=== PATIENT | female | born 2000 | race Caucasian/White ===

== ENCOUNTER 2019-08-10 17:07 | Emergency (ER) | payer MEDICAID ==
[2019-08-10 17:43] VITALS: BP 130/92; PULSE 88; O2SAT 97
--- NOTE | 2019-08-10 18:20 | ERPHSYRPT ---
- History of Present Illness Source: patient Exam Limitations: no limitations Patient Subjective Stated Complaint: pt here wanting to be placed in rehab for meth, pt used saturday, she smoked or snorts meth, no other drugs, has not been through rehab before Triage Nursing Assessment: pt alert, walked in, resp easy, skin w/d/p.moves all ext well, Physician History: The patient is a 18-year-old female who presents with a chief complaint seeking rehabilitation were substance abuse counseling resources. She states that she has used methamphetamines a total of 4 times with her last use being 2 days ago. Her family members were aware of her methamphetamine use and they contacted the [facility] who then told her to come to this ED for further evaluation and management and to seek rehabilitation placement. she denies suicidal ideations and homicidal ideations. She states she has a history of anxiety but does not take medication for this nor does he follow with a therapist her outpatient counselor. She has no specific complaints at this time other than what resources. Allergies/Adverse Reactions: Penicillins Allergy (Intermediate, Verified 08/10/19 17:44) Rash Home Medications: No Reportable Medications [No Reported Medications] 08/10/19 [History] Hx Influenza Vaccination/Date Given: No Hx Pneumococcal Vaccination/Date Given: No Immunizations Up to Date: Yes - Review of Systems Constitutional: No Symptoms Eyes: No Symptoms Ears, Nose, & Throat: No Symptoms Respiratory: No Symptoms Abdominal/Gastrointestinal: No Symptoms Musculoskeletal: No Symptoms Skin: No Symptoms Neurological: No Symptoms Psychological: No Symptoms, Other (No SI or report of suicide attemp), No Suicidal Ideations, No Homicidal Ideations, No Hallucinations All Other Systems: Reviewed and Negative - Past Medical History Pertinent Past Medical History: No Neurological History: No Pertinent History ENT History: No Pertinent History Cardiac History: No Pertinent History Respiratory History: No Pertinent History Endocrine Medical History: No Pertinent History Musculoskeletal History: No Pertinent History GI Medical History: No Pertinent History History: No Pertinent History Psycho-Social History: No Pertinent History - Past Surgical History Past Surgical History: No Neuro Surgical History: No Pertinent History Cardiac: No Pertinent History Respiratory: No Pertinent History Gastrointestinal: No Pertinent History Genitourinary: No Pertinent History Musculoskeletal: No Pertinent History Female Surgical History: No Pertinent History Other Surgical History: TONSILS, surgery on toe - Social History Smoking Status: Current every day smoker Exposure to second hand smoke: Yes Drug Use: methamphetamines Patient Lives Alone: No (grandparents) - Female History Hx Last Menstrual Period: 3 days ago Hx Now: No - Nursing Vital Signs Nursing Vital Signs: Initial Vital Signs Temperature 98.1 F 08/10/19 17:38 Pulse Rate 88 08/10/19 17:38 Respiratory Rate 16 08/10/19 17:38 Blood Pressure 130/92 08/10/19 17:38 O2 Sat by Pulse Oximetry 97 08/10/19 17:38 Pain Scale Pain Intensity 0 - Physical Exam General Appearance: no apparent distress, alert Eye Exam: PERRL/EOMI, other (No occular clonus) Ears, Nose, Throat Exam: other (Normal phonation), No TM abnormal (L), No pharyngeal erythema, No tonsillar exudate Neck Exam: No full range of motion, No mass, No JVD Respiratory Exam: normal breath sounds, airway intact, No lungs clear, No respiratory distress, No diminished breath sounds Cardiovascular Exam: regular rate/rhythm, normal peripheral pulses, murmur, capillary refill <2 sec, No edema Gastrointestinal/Abdomen Exam: soft, No tenderness, No distention, No mass Pelvic Exam: not done Rectal Exam: deferred Back Exam: normal inspection, No vertebral tenderness, No rash Extremity Exam: normal inspection Neurologic Exam: alert, oriented x 3, cooperative Skin Exam: normal color, warm, dry, other (No evidence of track neal), No rash , No petechiae, No jaundice SpO2: 97 O2 Delivery: Room Air - Course Nursing assessment & vital signs reviewed: Yes - Progress Progress: unchanged Counseled pt/family regarding: need for follow-up (Counseling and drug abuse counseling resources provided by the patient nurse) - Departure Departure Disposition: Home Clinical Impression: Methamphetamine abuse Condition: Stable Critical Care Time: No Referrals: ROSHAN BAILON FNP [Primary Care Provider] - Instructions: Drug Abuse and Drug Addiction (DC), Methamphetamine Additional Instructions: please followup with the substance abuse counseling resources that were provided to you by the nursing staff. Also please refrain from using methamphetamines in the future. Plan of Treatment: Nontoxic in appearance. Asymptomatic currently. I think her expectations were a bit malaligned and we do not have social work available currently. She was ok with no going to rehab at this moment and informed me she really doesn't want to go and she is in the ED maily because of her family talking her into coming to the ED to seek counseling services. She was ok with following-up as an outpatient with the counseling resources that were provided.
== END 2019-08-10 18:57 | disposition home or self-care (01) ==
LOC: ED 17:07
DX: F15.10 Other stimulant abuse, uncomplicated (principal)
CPT/HCPCS: 99284

== ENCOUNTER 2020-02-29 19:00 | Emergency (ER) | payer MEDICAID ==
[2020-02-29 19:37] LABS: Absolute Neutrophil Ct (ANC) 8.04 (1.4-6.9); BASOPHIL % 0.2 % (0.0-0.4); Basophil (Absolute #) 0.02 (0-0.4); Eosinophil % 1.2 % (0.00-5.0); Eosinophil (Absolute #) 0.14 (0-0.5); Hematocrit 39.5 % (35-47); Hemoglobin 13.3 gm/dl (12.0-16.0); Lymphocyte (Absolute #) 2.26 (1.0-4.6); Lymphocytes % 19.6 % (24.0-44.0); Mean Cell Volume 92.9 fl (78-100); Mean Corpuscular Hemoglobin 31.3 pg (26-32); Mean Corpuscular Hgb Concent. 33.7 g/dl (32-36); Mean Platelet Volume 10.5 fl (7.5-11.0); Monocyte (Absolute #) 1.09 (0.0-1.3); Monocytes % 9.4 % (0.0-12.0); Neutrophil % 69.6 % (36.0-66.0); Platelet Count 240 K/mm3 (150-450); Red Blood Count 4.25 M/mm3 (4.1-5.4); Red Cell Distribution Width 13.2 % (11.5-14.0); White Blood Count 11.6 K/mm3 (4.0-10.5)
[2020-02-29 19:38] LABS: Appearance SLIGHTLY CLOUDY (CLEAR); Bilirubin NEGATIVE (NEGATIVE); Blood NEGATIVE Ery/ul (0-5); Glucose NEGATIVE (NEGATIVE); Ketones NEGATIVE (NEGATIVE); Leukocyte Esterase NEGATIVE (NEGATIVE); Mucus SLIGHT /HPF (NEGATIVE); Nitrite NEGATIVE (NEGATIVE); Protein,Urine Dip NEGATIVE (Negative); Specific Gravity 1.026 (1.005-1.025); Urobilinogen NEGATIVE mg/dL (0-1)
--- NOTE | 2020-02-29 20:46 | ERPHSYRPT ---
- History of Present Illness Source: patient Exam Limitations: no limitations Patient Subjective Stated Complaint: pt states that she believes she is 9-10 weeks , pt states that she has began to spot yesterday afternoon, pt states that she has rt lower stomach pain, pt states that she was worried and wanted to be checked out, pt states that she did have intercourse 2 days ago Triage Nursing Assessment: pt ambulated into the er, pt is axo x3, c/o bleeding during pregnany, c/o pain to RLQ, states 5/10 pain, clear lung sounds in all lobes, clear heart tones, active bowel sounds in all quads, vitals wnl Physician History: 19 yo wf who states is 9wks complains of vag bleeding yesterday which has subsided now complains of RLQ cramping. She has mild vag dc wo fever/N/V/D/dysuria/hematuria. [id number]. No confirmation of IUP. Timing/Duration: day(s) (2days) Activites at Onset: none Onset Location: RLQ Pain Radiation: none Severity of Pain-Max: moderate Severity of Pain-Current: moderate Prior abdominal problems: none Sexual intercourse history: unprotected intercourse Modifying Factors: Improves With: nothing Associated Symptoms: abdominal pain, , vaginal discharge, No fever, No chills, No diaphoresis, No nausea, No vomiting, No dysuria, No nocturia, No polyuria, No urinary frequency, No loss of bladder control, No lower back pain, No lumps, No syncope Allergies/Adverse Reactions: Penicillins Allergy (Intermediate, Verified 02/29/20 19:38) Rash Home Medications: Pnv No.95/Ferrous Fum/Folic AC [ Formula Tablet] 1 tab PO DAILY 02/29/20 [History] Hx Tetanus, Diphtheria Vaccination/Date Given: No Hx Influenza Vaccination/Date Given: No Hx Pneumococcal Vaccination/Date Given: No Travel Risk - International Travel Have you traveled outside of the country in past 3 weeks: No - Coronavirus Screening Are you exhibiting any of the following symptoms?: No Close contact with a COVID-19 positive Pt in past 14-21 Days: No - Review of Systems Constitutional: No Symptoms Eyes: No Symptoms Ears, Nose, & Throat: No Symptoms Respiratory: No Symptoms Cardiac: No Symptoms Abdominal/Gastrointestinal: Abdominal Pain (R supra-pubic) Genitourinary Symptoms: , Vaginal Bleeding, Vaginal Discharge Musculoskeletal: No Symptoms Skin: No Symptoms Neurological: No Symptoms Psychological: No Symptoms Endocrine: No Symptoms Hematologic/Lymphatic: No Symptoms Immunological/Allergic: No Symptoms - Past Medical History Pertinent Past Medical History: No Neurological History: No Pertinent History ENT History: No Pertinent History Cardiac History: No Pertinent History Respiratory History: No Pertinent History Endocrine Medical History: No Pertinent History Musculoskeletal History: No Pertinent History GI Medical History: No Pertinent History History: No Pertinent History Psycho-Social History: No Pertinent History Female Reproductive Disorders: No Pertinent History - Past Surgical History Past Surgical History: Yes Neuro Surgical History: No Pertinent History Cardiac: No Pertinent History Respiratory: No Pertinent History Gastrointestinal: No Pertinent History Genitourinary: No Pertinent History Musculoskeletal: No Pertinent History Female Surgical History: No Pertinent History Other Surgical History: TONSILS, surgery on toe - Social History Smoking Status: Current every day smoker Exposure to second hand smoke: No Drug Use: none Patient Lives Alone: No (grandparents) Significant Family History: no pertinent family hx - Female History Hx Now: Yes (9-10 weeks) - Nursing Vital Signs Nursing Vital Signs: Initial Vital Signs Temperature 98.9 F 02/29/20 19:13 Pulse Rate 101 H 02/29/20 19:13 Respiratory Rate 16 02/29/20 19:13 Blood Pressure 140/80 02/29/20 19:13 O2 Sat by Pulse Oximetry 98 02/29/20 19:13 Pain Scale Pain Intensity 0 - Physical Exam General Appearance: no apparent distress Eye Exam: PERRL/EOMI, eyes nml inspection Ears, Nose, Throat Exam: normal ENT inspection, TMs normal, pharynx normal Neck Exam: normal inspection, non-tender, No meningismus, No Brudzinski, No Kernig's Respiratory Exam: normal breath sounds, lungs clear Cardiovascular Exam: regular rate/rhythm, normal heart sounds Gastrointestinal/Abdomen Exam: soft, normal bowel sounds, tenderness (RLQ/R adnexal) Pelvic Exam: normal external exam, No vaginal bleeding, No vaginal discharge Back Exam: normal inspection, normal range of motion, No CVA tenderness Extremity Exam: normal inspection, normal range of motion Neurologic Exam: alert, oriented x 3, cooperative, trans router II-XII nml as tested, normal mood/affect, nml station & gait, sensation nml, No motor deficits, No sensory deficit SpO2: 99 - Radiology Ultrasound Exam Pelvis Ultrasound: Other (Discussed w tech/9wk IUP/No adnexal mass/subchorionic hem orrhage x2) Ordered Tests: Active Orders 24 hr Category Date Time Status IV Insertion STAT Care 02/29/20 19:19 Completed OB <14 WKS 1ST GESTATION [US] Stat Exams 02/29/20 20:51 Completed CBC W DIFF Stat Lab 02/29/20 19:18 Completed HCG, Quantitative (Inhouse) Stat Lab 02/29/20 19:45 Completed HCG,QUALITATIVE URINE Stat Lab 02/29/20 19:18 Completed UA W/RFX UR CULTURE Stat Lab 02/29/20 19:18 Completed Lab/Rad Data: Laboratory Result Diagrams 02/29/20 19:18 Laboratory Results 02/29/20 02/29/20 02/29/20 Range/Units Unknown Unknown 19:45 WBC (4.0-10.5) K/mm3 RBC (4.1-5.4) M/mm3 Hgb (12.0-16.0) gm/dl Hct (35-47) % MCV (78-100) fl MCH (26-32) pg MCHC (32-36) g/dl RDW (11.5-14.0) % Plt Count (150-450) K/mm3 MPV (7.5-11.0) fl Gran % (36.0-66.0) % Eos # (Auto) (0-0.5) Absolute Lymphs (auto) (1.0-4.6) Absolute Monos (auto) (0.0-1.3) Lymphocytes % (24.0-44.0) % Monocytes % (0.0-12.0) % Eosinophils % (0.00-5.0) % Basophils % (0.0-0.4) % Absolute Granulocytes (1.4-6.9) Basophils # (0-0.4) Beta HCG, Quant 36837 mIU/ml Urine Color (YELLOW) Urine Appearance (CLEAR) Urine pH (5-6) Ur Specific [place] (1.005-1.025) Urine Protein (Negative) Urine Ketones (NEGATIVE) Urine Blood (0-5) Abisai/ul Urine Nitrite (NEGATIVE) Urine Bilirubin (NEGATIVE) Urine Urobilinogen (0-1) mg/dL Ur Leukocyte Esterase (NEGATIVE) Urine WBC (Auto) (0-5) /HPF Urine RBC (Auto) (0-2) /HPF U Epithel Cells (Auto) (FEW) /HPF Urine Bacteria (Auto) (NEGATIVE) /HPF Urine Mucus (Auto) (NEGATIVE) /HPF Urine Culture Reflexed (NO) Urine Glucose (NEGATIVE) mg/dL Urine HCG, Qual (Negative) WBC (Wet Prep) Moderate RBC (Wet Prep) None Seen Epi Cells (Wet Prep) Moderate Bacteria (Wet Prep) Many Clue Cells (Wet Prep) Rare Trichomonas (Wet Prep) None Seen Budding Yeast (Wet Prp) None Seen Chlamydia DNA Probe NOT DETECTED (NEGATIVE) N.gonorrhoeae DNA Probe NOT DETECTED (NEGATIVE) 02/29/20 02/29/20 02/29/20 Range/Units 19:18 19:18 19:18 WBC 11.6 H (4.0-10.5) K/mm3 RBC 4.25 (4.1-5.4) M/mm3 Hgb 13.3 (12.0-16.0) gm/dl Hct 39.5 (35-47) % MCV 92.9 (78-100) fl MCH 31.3 (26-32) pg MCHC 33.7 (32-36) g/dl RDW 13.2 (11.5-14.0) % Plt Count 240 (150-450) K/mm3 MPV 10.5 (7.5-11.0) fl Gran % 69.6 H (36.0-66.0) % Eos # (Auto) 0.14 (0-0.5) Absolute Lymphs (auto) 2.26 (1.0-4.6) Absolute Monos (auto) 1.09 (0.0-1.3) Lymphocytes % 19.6 L (24.0-44.0) % Monocytes % 9.4 (0.0-12.0) % Eosinophils % 1.2 (0.00-5.0) % Basophils % 0.2 (0.0-0.4) % Absolute Granulocytes 8.04 H (1.4-6.9) Basophils # 0.02 (0-0.4) Beta HCG, Quant mIU/ml Urine Color MIREYA (YELLOW) Urine Appearance SLIGHTLY CLOUDY (CLEAR) Urine pH 6.0 (5-6) Ur Specific [place] 1.026 (1.005-1.025) Urine Protein NEGATIVE (Negative) Urine Ketones NEGATIVE (NEGATIVE) Urine Blood NEGATIVE (0-5) Abisai/ul Urine Nitrite NEGATIVE (NEGATIVE) Urine Bilirubin NEGATIVE (NEGATIVE) Urine Urobilinogen NEGATIVE (0-1) mg/dL Ur Leukocyte Esterase NEGATIVE (NEGATIVE) Urine WBC (Auto) NONE (0-5) /HPF Urine RBC (Auto) NONE (0-2) /HPF U Epithel Cells (Auto) NONE (FEW) /HPF Urine Bacteria (Auto) NONE (NEGATIVE) /HPF Urine Mucus (Auto) SLIGHT (NEGATIVE) /HPF Urine Culture Reflexed NO (NO) Urine Glucose NEGATIVE (NEGATIVE) mg/dL Urine HCG, Qual POSITIVE (Negative) WBC (Wet Prep) RBC (Wet Prep) Epi Cells (Wet Prep) Bacteria (Wet Prep) Clue Cells (Wet Prep) Trichomonas (Wet Prep) Budding Yeast (Wet Prp) Chlamydia DNA Probe (NEGATIVE) N.gonorrhoeae DNA Probe (NEGATIVE) - Progress Progress: unchanged Progress Note: 02/29/20 21:09 GC/Chlamydia/TIEN/trich/BV P 03/01/20 01:25 GC/Chlamydia/no yeast/no trich/Pt to be called in AM Antibiotics given: No Counseled pt/family regarding: lab results, need for follow-up, rad results - Departure Departure Disposition: Home Clinical Impression: Intrauterine , Subchorionic hemorrhage Condition: Stable Critical Care Time: No Referrals: ROSHAN BAILON, FORGE TENDER [Primary Care Provider] - Instructions: Threatened Miscarriage (DC), Symptoms Additional Instructions: Follow up with [facility] jt Return to ER for increasing pain/bleeding Results will be called
--- NOTE | 2020-02-29 21:24 | XRAY ---
Exam: OB ultrasound less than 14 weeks from 02/29/2020. Comparison: None from this . Indication: Pelvic pain and vaginal spotting. Findings: Transabdominal longitudinal and transverse images were obtained. An unremarkable positioned and shaped gestational sac is seen within the upper uterine segment of the maternal uterus. The gestational sac contains a single live intrauterine pole with a crown-rump length of 2.25 cm consistent with a gestational age of 9 weeks, 0 days plus or -6 days yielding an estimated due date of 10/03/2020. This is in excellent accordance with the gestational age by dates (LMP) which is also 9 weeks, 0 days. heart rate measured 165 bpm. There appear to be 2 sites of subtle subchorionic hemorrhages at both the superior right lateral and inferior margins of the gestational sac. The superior one measures 2.46 cm x 1.45 cm x 1.38 cm. The more inferior one measures 2.57 cm x 1.42 cm x 1.57 cm. No fluid is seen within the cervical canal or vagina. The maternal right ovary measures 3.85 cm x 1.7 cm x 1.6 cm and is remarkable for a few small follicles. Normal color blood flow and Doppler signal is seen within the maternal right ovary. The maternal left ovary measures 4.3 cm x 1.6 cm x 2.9 cm and reveals normal color blood flow and Doppler signal within it. There appears to be a corpus luteal cyst within the maternal left ovary measuring 2.68 cm x 1.31 cm x 1.60 cm. Normal color blood flow and Doppler signal is seen within the maternal left ovary. Impression: 1. 9 week, 0 day single live intrauterine fetus with an estimated due date 10/03/2020. The heart rate is 165 bpm. 2. There appear to be 2 small subchorionic hemorrhages at the superior right lateral and inferior margins of the gestational sac. No abnormal fluid is seen within the cervical canal or vaginal stripe. 3. The maternal ovaries appeared remarkable only for a corpus luteal cyst within the left ovary.
[2020-02-29 21:25] VITALS: BP 110/56; PULSE 74
[2020-02-29 22:06] LABS: Bacteria Many; Clue Cells Rare; Red Blood Cells None Seen; Trichomonas None Seen; White Blood Cells Moderate; Yeast None Seen
[2020-02-29 23:42] LABS: CHLAMYDIA DNA NOT DETECTED (NEGATIVE); GC DNA Probe NOT DETECTED (NEGATIVE)
[2020-03-01 01:26] VITALS: O2SAT 99
== END 2020-02-29 21:25 | disposition home or self-care (01) ==
LOC: ED 19:00
DX: O20.9 Hemorrhage in early pregnancy, unspecified (principal); Z3A.10 10 weeks gestation of pregnancy; R10.9 Unspecified abdominal pain; R11.2 Nausea with vomiting, unspecified; Z79.899 Other long term (current) drug therapy; E11.9 Type 2 diabetes mellitus without complications; E05.90 Thyrotoxicosis, unspecified without thyrotoxic crisis or storm; J44.9 Chronic obstructive pulmonary disease, unspecified; I10 Essential (primary) hypertension; F41.9 Anxiety disorder, unspecified; F32.9 Major depressive disorder, single episode, unspecified
CPT/HCPCS: 36000; 36415; 76801; 81001; 84702; 84703; 85025; 87210; 87491; 87591; 99284

== ENCOUNTER 2022-08-07 18:25 | Observation (INO) | payer OTHER ==
[2022-08-07 19:18] VITALS: O2SAT 96
[2022-08-07 19:50] LABS: Appearance Clear (Clear); Bacteria None Seen /HPF (None Seen); Bilirubin Negative (Negative); Blood Negative (Negative); Epithelial Cells Rare /HPF (None Seen); Glucose, Urine Negative (Negative); Hyaline Casts NONE SEEN /LPF (0-2); Ketones Trace (Negative); Leukocyte Esterase Negative (Negative); Nitrite Negative (Negative); Protein,Urine Dip Trace (Negative); RBC 0-2 /HPF (0-5); Urobilinogen 0.2 mg/dL (0.2)
[2022-08-07 19:52] LABS: ADD URINE CULTURE? NO (NO)
[2022-08-07 19:53] VITALS: BP 117/71; PULSE 106
[2022-08-07 20:07] LABS: Amphetamine,Urine NEGATIVE (NEGATIVE); Barbiturate,Urine NEGATIVE (NEGATIVE); Benzodiazepine,Urine NEGATIVE (NEGATIVE); Cocaine,Urine NEGATIVE (NEGATIVE); Methadone,Urine NEGATIVE (NEGATIVE); Opiate,Urine NEGATIVE (NEGATIVE); PCP,Urine NEGATIVE (NEGATIVE); THC,Urine NEGATIVE (NEGATIVE)
== END 2022-08-07 20:20 | disposition home or self-care (01) ==
LOC: OB 18:25
PROVIDERS: ADMIT Family Medicine; ATTEND Family Medicine
DX: Z34.83 Encounter for supervision of other normal pregnancy, third trimester (principal); Z3A.37 37 weeks gestation of pregnancy
CPT/HCPCS: 80307; 81001; G0378

== ENCOUNTER 2022-08-13 16:41 | Observation (INO) | payer OTHER ==
[2022-08-13 17:33] VITALS: PULSE 96; O2SAT 95
[2022-08-13 17:55] LABS: Absolute Neutrophil Ct (ANC) 7.97 x10^3/uL (1.4-6.9); BASOPHIL % 0.4 % (0.0-0.4); Basophil (Absolute #) 0.04 x10^3/uL (0-0.4); Eosinophil % 0.5 % (0.00-5.0); Eosinophil (Absolute #) 0.06 x10^3/uL (0-0.5); Hematocrit 34.7 % (35-47); Hemoglobin 11.3 g/dL (12.0-16.0); IMMATURE GRAN # 0.15 x10^3u/L (0.00-0.03); IMMATURE GRAN % 1.3 % (0.00-0.4); Lymphocyte (Absolute #) 2.03 x10^3/uL (1.0-4.6); Lymphocytes % 18.2 % (24.0-44.0); Mean Corpuscular Hemoglobin 30.3 pg (26-32); Mean Corpuscular Hgb Concent. 32.6 g/dL (32-36); Mean Platelet Volume 9.9 fL (7.5-11.0); Monocyte (Absolute #) 0.92 x10^3/uL (0.0-1.3); Monocytes % 8.2 % (0.0-12.0); Neutrophil % 71.4 % (36.0-66.0); Platelet Count 212 x10^3/uL (150-450); Red Blood Count 3.73 x10^6/uL (4.1-5.4); Red Cell Distribution Width 13.6 % (11.5-14.0); White Blood Count 11.2 x10^3/uL (4.0-10.5)
[2022-08-13 17:58] LABS: Amphetamine,Urine NEGATIVE (NEGATIVE); Barbiturate,Urine NEGATIVE (NEGATIVE); Benzodiazepine,Urine NEGATIVE (NEGATIVE); Cocaine,Urine NEGATIVE (NEGATIVE); Methadone,Urine NEGATIVE (NEGATIVE); Opiate,Urine NEGATIVE (NEGATIVE); PCP,Urine NEGATIVE (NEGATIVE); THC,Urine NEGATIVE (NEGATIVE)
[2022-08-13 18:01] LABS: Appearance Clear (Clear); Bacteria Few /HPF (None Seen); Bilirubin Negative (Negative); Blood Negative (Negative); Epithelial Cells Few /HPF (None Seen); Glucose, Urine Negative (Negative); Ketones Trace (Negative); Leukocyte Esterase Negative (Negative); Nitrite Negative (Negative); Protein,Urine Dip 30 (Negative); RBC 0-2 /HPF (0-5); Specific Gravity >=1.030 (1.005-1.030); Urobilinogen 0.2 mg/dL (0.2)
[2022-08-13 18:02] LABS: ADD URINE CULTURE? NO (NO); Hyaline Casts None Seen /LPF (0-2)
[2022-08-13 18:20] LABS: ALBUMIN 3.6 g/dL (3.5-5.0); ALKALINE PHOSPHATASE 61 U/L (38-126); ANION GAP 8.7 MEQ/L (5-15); BLOOD UREA NITROGEN 11 mg/dL (7-17); CHLORIDE 108 mmol/L (98-107); Calcium 8.9 mg/dL (8.4-10.2); Carbon Dioxide 21 mmol/L (22-30); EST GLOMERULAR FILTRATION RATE > 60.0 ML/MIN; Glucose 101 mg/dL (74-106); Potassium 3.9 mmol/L (3.5-5.1); SGOT/AST 22 U/L (14-36); SGPT/ALT 18 U/L (0-35); SODIUM 133 mmol/L (137-145); Total Protein 6.2 g/dL (6.3-8.2)
[2022-08-13 19:34] VITALS: BP 118/58
== END 2022-08-13 19:00 | disposition home or self-care (01) ==
LOC: OB 16:41
PROVIDERS: ADMIT Family Medicine; ATTEND Family Medicine
DX: Z34.83 Encounter for supervision of other normal pregnancy, third trimester (principal); Z3A.38 38 weeks gestation of pregnancy
CPT/HCPCS: 36415; 80053; 80307; 81001; 85025; G0378

== ENCOUNTER 2022-08-20 00:26 | Inpatient (IN) | payer OTHER ==
[2022-08-20] MEDS ORDERED: BRETHINE 1 MG/ML SQ PRN (17:00)
[2022-08-20] MEDS ORDERED: Cervidil 10 MG VAG SCH (17:00)
[2022-08-20 17:53] LABS: Absolute Neutrophil Ct (ANC) 9.03 x10^3/uL (1.4-6.9); BASOPHIL % 0.3 % (0.0-0.4); Basophil (Absolute #) 0.04 x10^3/uL (0-0.4); Eosinophil % 0.8 % (0.00-5.0); Eosinophil (Absolute #) 0.09 x10^3/uL (0-0.5); Hematocrit 35.9 % (35-47); Hemoglobin 11.8 g/dL (12.0-16.0); IMMATURE GRAN # 0.17 x10^3u/L (0.00-0.03); IMMATURE GRAN % 1.4 % (0.00-0.4); Lymphocyte (Absolute #) 1.98 x10^3/uL (1.0-4.6); Lymphocytes % 16.5 % (24.0-44.0); Mean Cell Volume 92.3 fL (78-100); Mean Corpuscular Hemoglobin 30.3 pg (26-32); Mean Corpuscular Hgb Concent. 32.9 g/dL (32-36); Mean Platelet Volume 10.3 fL (7.5-11.0); Monocyte (Absolute #) 0.67 x10^3/uL (0.0-1.3); Monocytes % 5.6 % (0.0-12.0); Neutrophil % 75.4 % (36.0-66.0); Platelet Count 228 x10^3/uL (150-450); Red Blood Count 3.89 x10^6/uL (4.1-5.4); Red Cell Distribution Width 13.8 % (11.5-14.0)
[2022-08-20] MEDS ORDERED: Zofran 4 MG/2 ML VIAL IV PRN (18:00)
[2022-08-20 18:27] LABS: ABO TYPING A; Antibody Screen NEGATIVE (NEGATIVE); RH TYPING POSITIVE
[2022-08-20 19:47] LABS: ADD URINE CULTURE? YES (NO); Appearance Clear (Clear); Bacteria Moderate /HPF (None Seen); Bilirubin Negative (Negative); Blood Negative (Negative); Epithelial Cells Few /HPF (None Seen); Glucose, Urine Negative (Negative); Hyaline Casts NONE SEEN /LPF (0-2); Ketones Trace (Negative); Leukocyte Esterase Trace (Negative); Nitrite Negative (Negative); Protein,Urine Dip Trace (Negative); RBC 0-2 /HPF (0-5); Specific Gravity 1.025 (1.005-1.030); Urobilinogen 0.2 mg/dL (0.2)
[2022-08-20] MEDS: TYLENOL EXTRA STRENGTH 500 MG PO PRN (21:51)
[2022-08-21] MEDS: TYLENOL EXTRA STRENGTH 500 MG PO PRN (02:07)
[2022-08-21] MEDS ORDERED: PITOCIN 30 UNITS/ LR 500 ML 500 ML IV ONE (03:52)
[2022-08-21] MEDS ORDERED: Lactated Ringers 1,000 ML IV ONE ×2 (03:52→08:12)
[2022-08-21] MEDS ORDERED: Lactated Ringers 1,000 ML IV SCH (06:00)
[2022-08-21] MEDS ORDERED: PITOCIN 30 UNITS/ LR 500 ML 30 UNITS/500 ML PLAST..BAG IV SCH ×2 (06:00→08:00)
[2022-08-21] MEDS ORDERED: XYLOCAINE 1% HCL 20 ML MDV IJ PRN (08:00)
[2022-08-21] MEDS ORDERED: TUCKS TP PRN (08:12)
[2022-08-21] MEDS ORDERED: LANSINOH 40 GM TOP PRN (08:12)
[2022-08-21] MEDS ORDERED: Dermoplast Spray TP PRN (08:12)
[2022-08-21] MEDS ORDERED: Ephedrine Sulfate 50 MG/ML IV PRN (08:12)
[2022-08-21] MEDS ORDERED: FERREX 150 PO SCH (10:00)
[2022-08-21] MEDS ORDERED: Docusate Sodium 100 MG PO SCH (10:00)
[2022-08-21] MEDS: FENTANYL 2 MCG-BUPIV 0.125%-NS 250 ML Epidur 250 ML EPIDURAL SCH ×2 (10:30→10:31)
[2022-08-21] MEDS ORDERED: Erythromycin 1 GM ONE (19:42)
[2022-08-21] MEDS ORDERED: Vitamin K 1 MG ONE (19:42)
[2022-08-21] MEDS ORDERED: CORTISONE 1% CREAM TP PRN (23:24)
[2022-08-21] MEDS ORDERED: Mylicon 80MG PO PRN (23:24)
[2022-08-21] MEDS ORDERED: Anucort-HC SUPPOSITORY PR PRN (23:24)
[2022-08-21] MEDS ORDERED: Dulcolax 10 MG SUPP PR PRN (23:24)
[2022-08-21] MEDS: MOTRIN 400 MG PO PRN (23:36)
[2022-08-21] MEDS ORDERED: BENADRYL 25 MG CAPSULE PO PRN (23:51)
[2022-08-22] MEDS: TYLENOL EXTRA STRENGTH 500 MG PO PRN ×2 (02:38→15:21)
[2022-08-22 05:34] LABS: Absolute Neutrophil Ct (ANC) 9.19 x10^3/uL (1.4-6.9); BASOPHIL % 0.4 % (0.0-0.4); Basophil (Absolute #) 0.05 x10^3/uL (0-0.4); Eosinophil % 0.9 % (0.00-5.0); Eosinophil (Absolute #) 0.12 x10^3/uL (0-0.5); Hematocrit 30.8 % (35-47); IMMATURE GRAN # 0.11 x10^3u/L (0.00-0.03); IMMATURE GRAN % 0.9 % (0.00-0.4); Lymphocyte (Absolute #) 2.32 x10^3/uL (1.0-4.6); Mean Cell Volume 92.2 fL (78-100); Mean Corpuscular Hemoglobin 29.9 pg (26-32); Mean Corpuscular Hgb Concent. 32.5 g/dL (32-36); Mean Platelet Volume 10.2 fL (7.5-11.0); Monocyte (Absolute #) 1.08 x10^3/uL (0.0-1.3); Monocytes % 8.4 % (0.0-12.0); Neutrophil % 71.4 % (36.0-66.0); Platelet Count 190 x10^3/uL (150-450); Red Blood Count 3.34 x10^6/uL (4.1-5.4); Red Cell Distribution Width 14.2 % (11.5-14.0); White Blood Count 12.9 x10^3/uL (4.0-10.5)
[2022-08-22] MEDS: MOTRIN 400 MG PO PRN (08:30)
--- NOTE | 2022-08-22 08:55 | PCM.DS ---
Discharge Summary Date of Admission: 08/21/22 09:00 Admitting Physician: KELLIE SALCEDO Consults: Consults on Case 08/21/22 08:23 Notify Anesthesia Provider PRN Primary Care Provider: KELLIE SALCEDO Allergies Allergies Penicillins Allergy (Intermediate, Verified 08/20/22 17:44) [facility] Summary - Hospital Course Hospital Course: patient had uncomplicated vaginal delivery, mild lochia and pain is minimal af ter delivery. she is bottle feeding, well bonded and requesting discharge at 24 hours. - Vitals & Intake/Output Vital Signs: Vital Signs Temperature 97.9 F 08/22/22 01:15 Pulse Rate 102 H 08/22/22 03:00 Respiratory Rate 20 08/22/22 03:00 Blood Pressure 120/88 08/22/22 01:15 O2 Sat by Pulse Oximetry 97 08/22/22 03:00 Intake & Output: Intake & Output 08/19/22 08/20/22 08/21/22 08/22/22 11:59 11:59 11:59 11:59 Intake Total 2869 975 Output Total 1100 Balance 2869 -125 Weight 107.955 kg - Lab Result Diagrams: 08/22/22 05:17 Lab Results-Last 24 Hrs: Lab Results-Last 24 Hours 08/22/22 Range/Units 05:17 WBC 12.9 H (4.0-10.5) x10^3/uL RBC 3.34 L (4.1-5.4) x10^6/uL Hgb 10.0 L (12.0-16.0) g/dL Hct 30.8 L (35-47) % MCV 92.2 (78-100) fL MCH 29.9 (26-32) pg MCHC 32.5 (32-36) g/dL RDW 14.2 H (11.5-14.0) % Plt Count 190 (150-450) x10^3/uL MPV 10.2 (7.5-11.0) fL Gran % 71.4 H (36.0-66.0) % Immature Gran % (Auto) 0.9 H (0.00-0.4) % Nucleat RBC Rel Count 0.0 (0.00-0.1) % Eos # (Auto) 0.12 (0-0.5) x10^3/uL Immature Gran # (Auto) 0.11 H (0.00-0.03) x10^3u/L Absolute Lymphs (auto) 2.32 (1.0-4.6) x10^3/uL Absolute Monos (auto) 1.08 (0.0-1.3) x10^3/uL Absolute Nucleated RBC 0.00 (0.00-0.01) x10^3u/L Lymphocytes % 18.0 L (24.0-44.0) % Monocytes % 8.4 (0.0-12.0) % Eosinophils % 0.9 (0.00-5.0) % Basophils % 0.4 (0.0-0.4) % Absolute Granulocytes 9.19 H (1.4-6.9) x10^3/uL Basophils # 0.05 (0-0.4) x10^3/uL Micro Results-Entire Visit: Microbiology 08/20/22 Unknown Urine Culture - Final Clean Catch Midstream MIXED GERALDINE; 3 OR MORE TYPES. NO PREDOMINANT ORGANISM. NO FURTHER WORKUP. PLEASE RESUBMIT IF CLINICALLY INDICATED. - Procedures and Test Procedures and Tests throughout Hospitalization: Therapy Orders & Screens 08/21/22 21:27 Standby STAT Comment: Diagnosis: IUP, ELECTIVE INDUCTION Discharge Exam General Appearance: no apparent distress Neurologic Exam: alert, oriented x 3 Respiratory Exam: normal breath sounds, lungs clear, No respiratory distress Cardiovascular Exam: regular rate/rhythm, normal heart sounds Gastrointestinal/Abdomen Exam: soft, other (fundus firm) Extremity Exam: normal inspection, normal range of motion Final Diagnosis/Problem List - Final Discharge Diagnosis/Problem (1) Vaginal delivery Current Visit: Yes Status: Acute Assessment & Plan: ok to discharge at 24 hours Code(s): O80 - ENCOUNTER FOR FULL-TERM UNCOMPLICATED DELIVERY - Discharge Disposition: Home, Self-Care Condition: Stable Prescriptions: No Action Pnv No.95/Ferrous Fum/Folic AC [ Multivitamin Tablet] 1 tab PO DAILY Follow up with: KELLIE SALCEDO MD [Primary Care Provider] -
[2022-08-22] MEDS ORDERED: FERREX 150 PO SCH (10:00)
[2022-08-22] MEDS ORDERED: Docusate Sodium 100 MG PO SCH (10:00)
[2022-08-22 13:22] LABS: HBsAg Screen Negative (Negative)
[2022-08-22 20:30] VITALS: O2SAT 98
[2022-08-22 22:17] VITALS: BP 108/58; PULSE 80
[2022-08-23 00:45] LABS: Amphetamine,Urine NEGATIVE (NEGATIVE); Barbiturate,Urine NEGATIVE (NEGATIVE); Benzodiazepine,Urine NEGATIVE (NEGATIVE); Cocaine,Urine NEGATIVE (NEGATIVE); Methadone,Urine NEGATIVE (NEGATIVE); Opiate,Urine NEGATIVE (NEGATIVE); PCP,Urine NEGATIVE (NEGATIVE); THC,Urine NEGATIVE (NEGATIVE)
== END 2022-08-22 23:15 | disposition home or self-care (01) | DRG 807 ==
LOC: OB 09:00 → OBSVTOIN 08-21 09:00
PROVIDERS: ADMIT Family Medicine; ATTEND Family Medicine
PROC: 10E0XZZ Delivery of Products of Conception, External Approach (ICD-10-PCS; principal; 2022-08-21)
DX: O80 Encounter for full-term uncomplicated delivery (principal); Z37.0 Single live birth; Z3A.39 39 weeks gestation of pregnancy; Z20.828 Contact with and (suspected) exposure to other viral communicable diseases
CPT/HCPCS: 36415; 80307; 81001; 85025; 86850; 86900; 86901; 87086; 87340; 94799; G0378; J2590; A9270-GY

== ENCOUNTER 2023-02-26 07:48 | Day surgery (SDC) | payer OTHER ==
[2023-02-26] MEDS ORDERED: Versed 2 MG/2 ML Injection IV PRN (08:04)
[2023-02-26] MEDS ORDERED: Transderm Scop 1.5MG Patch TOP PRN (08:04)
[2023-02-26] MEDS ORDERED: Pepcid 20 MG VIAL IV ONE ×2 (08:04→08:22)
[2023-02-26] MEDS ORDERED: Reglan 10 MG/2 ML IV ONE (08:05)
[2023-02-26 08:11] LABS: HCG URINE TEST NEGATIVE (NEGATIVE)
[2023-02-26] MEDS ORDERED: Transderm Scop 1.5MG Patch ONE (08:22)
[2023-02-26] MEDS ORDERED: CLINDAMYCIN-D5W 900 MG/50 ML*** 900 MG/50 ML BAG IV ONE (08:22)
[2023-02-26] MEDS ORDERED: Reglan 10 MG/2 ML ONE (08:22)
[2023-02-26] MEDS ORDERED: Lactated Ringers 1,000 ML IV ONE (08:23)
[2023-02-26] MEDS ORDERED: CLINDAMYCIN-D5W 900 MG/50 ML*** 900 MG/50 ML BAG IV SCH (08:30)
[2023-02-26] MEDS ORDERED: Lactated Ringers 1,000 ML IV SCH (08:30)
[2023-02-26] MEDS ORDERED: Versed 2 MG/2 ML Injection ONE ×2 (09:21→09:50)
[2023-02-26] MEDS ORDERED: Decadron 4 MG INJ ONE (09:50)
[2023-02-26] MEDS ORDERED: SUBLIMAZE 100 MCG/2 ML ONE ×2 (09:50→10:57)
[2023-02-26] MEDS ORDERED: DIPRIVAN 200 MG/20 ML IV ONE (09:50)
[2023-02-26] MEDS ORDERED: Xylocaine-Mpf 2% 5 Ml Vial ONE (09:50)
[2023-02-26] MEDS ORDERED: Zemuron 100 MG/10 ML ONE (09:50)
[2023-02-26] MEDS ORDERED: Zofran 4 MG/2 ML VIAL ONE (09:53)
[2023-02-26] MEDS ORDERED: BRIDION 200MG/2ML IV ONE (09:53)
[2023-02-26] MEDS ORDERED: Pre-Attached Lta Kit TP ONE (10:07)
[2023-02-26] MEDS ORDERED: Sensorcaine 0.25% 10 ML ONE (10:11)
[2023-02-26] MEDS ORDERED: Hydromorphone 1 mg/ml Injection ONE (11:29)
[2023-02-26] MEDS ORDERED: TORAdol 30 mg Injection IV STA (12:05)
[2023-02-26] MEDS ORDERED: TORAdol 30 mg Injection ONE (12:06)
[2023-02-26 12:29] VITALS: BP 152/94; PULSE 80; RESP 16; TEMP 98.5; O2SAT 99
--- NOTE | 2023-02-28 11:08 | OP ---
SURGERY DATE/TIME: 02/26/2023 1002 PREOPERATIVE DIAGNOSIS: Contraceptive counseling, multiparity desiring tubal sterilization. POSTOPERATIVE DIAGNOSIS: Contraceptive counseling, multiparity desiring tubal sterilization. PROCEDURE: Laparoscopic tubal sterilization via Falope ring application. SURGEON: Skyler Moon D.O. CERTIFIED FIRST ASSISTANT: Charu Ba, surgical rn. ANESTHESIA: General. ESTIMATED BLOOD LOSS: Minimal. COMPLICATIONS: None. INDICATIONS: The risks, benefits, indications and alternatives of the procedure were reviewed with the patient prior to the procedure. The patient understood the risk of infection, bleeding, bowel injury, bladder injury, ureteral injury, pelvic infection, thromboembolic disorder, possible and ectopic that may be associated with this procedure, where all other forms of control had been discussed with the patient prior to the procedure. The patient understood all risks of the surgical procedure and desires to have this procedure as a possible means to alleviate her current medical condition. DESCRIPTION OF PROCEDURE AND FINDINGS: At this point the patient is taken to the operating room, given general sedation, placed in the dorsal lithotomy position, prepped and draped in the usual sterile fashion. A weighted speculum is then placed in the patient's vagina and at this point a uterine manipulator was inserted in through the endocervical region as a means to manipulate and elevate the uterus. Attention was then turned to the patient's abdomen where a 5 mm skin incision was made in the umbilical fold and a 5 mm trocar and sleeve were advanced under direct visualization where pneumoperitoneum was obtained with 4 liters of CO2 gas. An additional incision is made 2 cm above the symphysis pubis where an 8 mm incision was made and an 8 mm trocar and sleeve were advanced under direct visualization where at this point the uterus is elevated and the bilateral fallopian tubes were identified and the Falope ring applicator was placed on the left fallopian tube on the isthmic region where a good knuckle of tube was obtained and the Falope ring was placed on the knuckle of the tube with hemostasis being obtained. The same procedure was performed on the right tube where on the isthmic region the fallopian tube was elevated and a good knuckle of tube was obtained with Falope ring placed over the knuckle of tube and was placed in proper placement where hemostasis was obtained. From this point, visualization of the abdominal and pelvic region appeared to be within normal limits. At this point, all instruments were removed from the patient's abdomen and the incisions were closed with 4-0 Monocryl suture. After completion, the patient was then taken out of the dorsal lithotomy position, all instruments were removed from the patient's vaginal region. The patient was then taken out of anesthesia and was then taken to the recovery room in stable condition. All instruments and laps were accounted for x2.
== END 2023-02-26 12:39 | disposition home or self-care (01) ==
LOC: SDC 07:48
PROVIDERS: ATTEND Obstetrics & Gynecology
DX: Z30.2 Encounter for sterilization (principal)
CPT/HCPCS: 81025; J1100; J1170; J1885; J2250; J2405; J2704; J3010; A9270-GY